=== PATIENT | female | born 1955 | race Caucasian/White ===

== ENCOUNTER → 2020-02-01 10:23 | Outpatient (CLI) | payer OTHER, SELFPAY ==
--- NOTE | ~2020-02-01 | MM_ITS ---
EXAMINATION: MM screening kwasi BI w manuel HISTORY: Screening TECHNIQUE: Craniocaudal and mediolateral oblique 3-D tomosynthesis images were obtained and synthetic 2-D images were generated. CAD analysis was submitted and interpreted. COMPARISON: Comparison to multiple prior studies sequentially, with oldest reviewed study dated 05/23. BREAST PARENCHYMAL COMPOSITION: There are scattered areas of fibroglandular density. FINDINGS: There is no evidence of suspicious mass, calcification, or architectural distortion to sugg est malignancy in either breast. There has been no suspicious interval change. IMPRESSION: 1. No mammographic evidence of malignancy. 2. Recommend routine screening mammography in one year. BI-RADS Category 1: Negative Reviewed, dictated and finalized at location A.
--- NOTE | ~2020-02-01 | DEXA_ITS ---
Bone Density Report Name: Lanny Hurtado Age: 64 Sex: Female Ethnicity: White Date of : 1955 Indication: postmenopausal; screening for osteoporosis; height loss; Referring Provider: ALBERT GAMBOA Study: Bone densitometry was performed. Exam Date: February 01, 2020 Accession number: [id number] Bone Density: Region BMD T-score Z-score Classification AP Spine (L1-L4) 1.219 1.6 3.3 Normal Femoral Neck (Left) 0.757 -0.8 0.7 Normal Total Hip (Left) 0.889 -0.4 0.8 Normal Femoral Neck (Right) 0.758 -0.8 0.7 Normal Total Hip (Right) 0.850 -0.8 0.5 Normal Total Hip Mean 0.870 -0.6 0.7 Normal World Health Organization criteria for BMD impression classify patients as: Normal (T-score at or above -1.0), Osteopenia (T-score between -1.0 and -2.5), or Osteoporosis (T-score at or below -2.5). 10-year Fracture Risk: FRAX not reported because: All T-scores for Spine Total, Hip Total, Femoral Neck at or above -1.0 Previous Exams: Region Exam Age BMD T-score BMD Change BMD Change Date g/cm2 vs Baseline vs Previous AP Spine(L1-L4) 02/01/2020 64 1.219 1.6 -0.116 -0.020 09/16/2017 62 1.239 1.7 -0.096 0.006 01/01/2013 57 1.233 1.7 -0.102* -0.102* 06/12/2005 50 1.335 2.6 Total Hip(Left) 02/01/2020 64 0.889 -0.4 -0.142 -0.011 09/16/2017 62 0.900 -0.3 -0.130 -0.065 01/01/2013 57 0.966 0.2 -0.065* -0.065* 06/12/2005 50 1.031 0.7 Total Hip(Right) 02/01/2020 64 0.850 -0.8 -0.172 -0.026 09/16/2017 62 0.876 -0.5 -0.145 -0.016 01/01/2013 57 0.892 -0.4 -0.130* -0.130* 06/12/2005 50 1.022 0.7 *Denotes significance at 95% confidence level, LSC for AP Spine = 0.022 g/cm2, LSC for Total Hip = 0.027 g/cm2 Clinical Information Provided by Patient: Has used the following medications: Vitamin D Patient maximum height was 65 Menopause Age: 53 Drinks caffeinated beverages Onset of menses at age 13 Number of children 0 Impression: The patient has normal bone mass. No significant bone loss was observed. Discussion: BONE DENSITY IS ABOVE THE MINIMUM DESIRABLE LEVEL AT ALL SKELETAL SITES TESTED. This patient?s bone mineral density is above the minimum desirable level (T-score -1.0 or better) at all sites measured. The patient should follow a health
== END ==
PROVIDERS: Visit Provider Obstetrics & Gynecology Gynecology
DX: Z12.31 Encounter for screening mammogram for malignant neoplasm of breast (principal); Z78.0 Asymptomatic menopausal state
CPT/HCPCS: 77063; 77067; 77080

== ENCOUNTER → 2021-04-06 10:08 | Outpatient (CLI) | payer OTHER, SELFPAY ==
--- NOTE | ~2021-04-06 | MM_ITS ---
EXAMINATION: MM screening kwasi BI w manuel HISTORY: Screening TECHNIQUE: Craniocaudal and mediolateral oblique 3-D tomosynthesis images were obtained and synthetic 2-D images were generated. CAD analysis was submitted and interpreted. COMPARISON: Comparison to multiple prior studies sequentially, with oldest reviewed study dated 05/23. BREAST PARENCHYMAL COMPOSITION: There are scattered areas of fibroglandular density. FINDINGS: There is no evidence of suspicious mass, calcification, or architectural distortion to sugg est malignancy in either breast. There has been no suspicious interval change. IMPRESSION: 1. No mammographic evidence of malignancy. 2. Recommend routine screening mammography in one year. BI-RADS Category 1: Negative Reviewed, dictated and finalized at location A. ARYNGOLOGY PHYSICIAN
== END ==
PROVIDERS: Visit Provider Obstetrics & Gynecology Gynecology
DX: Z12.31 Encounter for screening mammogram for malignant neoplasm of breast (principal)
CPT/HCPCS: 77063; 77067

== ENCOUNTER → 2022-03-15 12:32 | Outpatient (CLI) | payer OTHER, SELFPAY ==
--- NOTE | ~2022-03-15 | XR_ITS ---
XR hip LT min 2V DATE: 03/15/2022 12:53 INDICATION: Left hip pain for several months; no injury TECHNIQUE: AP and lateral views COMPARISON: None FINDINGS: No fracture or dislocation, avascular necrosis or bone destruction. There is mild left hip osteoarthritis. The pubic symphysis and sacroiliac joints appear normally aligned. IMPRESSION: Mild left hip osteoarthritis Reviewed, dictated and finalized at location B. SING MACHINE OPERATOR
--- NOTE | ~2022-03-15 | XR_ITS ---
XR lumbar spine 2-3V DATE: 03/15/2022 12:54 INDICATION: Low back pain for months. No injury. TECHNIQUE: AP, lateral, coned lateral lumbosacral views COMPARISON: None FINDINGS: There is mild to moderate degenerative disc disease at L1-2, L2-3, L3-4 and L4-5 and modera te severe degenerative disease at L5-S1. There is degenerative change at the apophyseal joints, with associated grade 1 anterolisthesis at L3- 4 and L4-5. The lumbar pedicles are intact. No fracture or bone destruction is detected. The sacroiliac joints are normal. Abdominal aortic calcification is noted, without apparent aneurysm. IMPRESSION: Multilevel degenerative disc disease, most prominent at L5-S1 Degenerative changes apophyseal joints with associated grade 1 anterolisthesis at L3-4 and L4-5 Reviewed, dictated and finalized at location B. RDING ARTIST
--- NOTE | ~2022-03-15 | XR_ITS ---
XR hip RT min 2V DATE: 03/15/2022 12:54 INDICATION: Right hip pain for several months. No injury. TECHNIQUE: AP and lateral views of right hip COMPARISON: None FINDINGS: The pubic symphysis and sacroiliac joints are intact. Moderately severe to severe degenerative disc disease noted at L5-S1. No fracture or dislocation, avascular necrosis or bone destruction of the right hip. Right hip joint space is well preserved. IMPRESSION: Moderately severe to severe degenerative disc disease at L5-S1 No significant abnormality of the right hip Reviewed, dictated and finalized at location B. W MACHINE OPERATOR SINGLE SPINDLE
== END ==
PROVIDERS: PCP Internal Medicine; Visit Provider Internal Medicine
DX: M54.50 Low back pain, unspecified (principal); M51.37 Other intervertebral disc degeneration, lumbosacral region; M43.16 Spondylolisthesis, lumbar region; M16.12 Unilateral primary osteoarthritis, left hip
CPT/HCPCS: 72100; 73502

== ENCOUNTER → 2022-06-26 12:44 | Outpatient (CLI) | payer OTHER, SELFPAY ==
--- NOTE | ~2022-06-26 | MM_ITS ---
EXAMINATION: MM screening kwasi BI w manuel HISTORY: Screening mammogram TECHNIQUE: Craniocaudal and mediolateral oblique 3-D tomosynthesis images were obtained and synthetic 2-D images were generated. CAD analysis was submitted and interpreted. COMPARISON: 04/06/2021, 02/01/2020, 11/02/2018 bilateral screening mammogram examinations BREAST PARENCHYMAL COMPOSITION: There are scattered areas of fibroglandular density. FINDINGS: There is no evidence of suspicious mass, calcification, or architectural distortion to sugg est malignancy in either breast. There has been no suspicious interval change. IMPRESSION: 1. No mammographic evidence of malignancy. 2. Recommend routine screening mammography in one year. BI-RADS Category 1: Negative Reviewed, dictated and finalized at location A. TING GOODS SALES ASSOCIATE
== END ==
PROVIDERS: PCP Obstetrics & Gynecology Gynecology; Visit Provider Obstetrics & Gynecology Gynecology
DX: Z12.31 Encounter for screening mammogram for malignant neoplasm of breast (principal)
CPT/HCPCS: 77063; 77067

== ENCOUNTER → 2023-02-12 10:14 | Outpatient (CLI) | payer OTHER, SELFPAY | PROVIDERS: PCP Nurse Practitioner Family; Visit Provider Nurse Practitioner Family | DX: S89.91XA Unspecified injury of right lower leg, initial encounter (principal) | CPT/HCPCS: 73562 ==

== ENCOUNTER → 2023-04-08 08:44 | Outpatient (CLI) | payer OTHER, MEDICARE, SELFPAY ==
--- NOTE | ~2023-04-08 | MR_ITS ---
MRI of the right knee Clinical history: Pain Technique: Coronal proton density and proton density-weighted images, sagittal proton-density and T2 fat-sat images, and axial proton-density fat-saturated images were acquired. Findings: Anterior and posterior cruciate ligaments are intact. Medial collateral ligament and the la teral collateral ligament complex are intact. Popliteus tendon is intact. There is complex tearing of the posterior horn of the medial meniscus, predominantly horizontal. Ther e is a suspected 1.8 x 0.8 x 0.5 cm parameniscal cyst extending inferiorly from the posterior horn of the medial meniscus. No lateral meniscal tear identified. There is mild chondral thinning along the medial femoral condyle. Lateral compartment articular carti sorin is well preserved. There is mild chondromalacia patella. Extensor mechanism is intact. Small joint effusion present. Moderate Ortiz's cyst present. Impression: Complex tearing of the posterior horn of the medial meniscus, with associated probable 1.8 x 0.8 x 0. 5 cm parameniscal cyst. Please see details above. Mild degenerative change. Moderate Ortiz's cyst. Reviewed, dictated and finalized at location . LED LABOR Impression: Complex tearing of the posterior horn of the medial meniscus, with associated p robable 1.8 x 0.8 x 0.5 cm parameniscal cyst. Please see details above. Mild degenerative change. Moderate Ortiz's cyst.
== END ==
PROVIDERS: PCP Orthopaedic Surgery; Visit Provider Orthopaedic Surgery
DX: S83.231A Complex tear of medial meniscus, current injury, right knee, initial encounter (principal); M17.11 Unilateral primary osteoarthritis, right knee; M71.21 Synovial cyst of popliteal space [Baker], right knee; X58.XXXA Exposure to other specified factors, initial encounter
CPT/HCPCS: 73721

== ENCOUNTER → 2023-06-11 08:29 | Outpatient (CLI) | payer OTHER, SELFPAY ==
--- NOTE | ~2023-06-11 | US_ITS ---
Renal-Bladder ultrasound Clinical History: Left flank pain Technique: Real-time sonographic imaging of the kidneys and urinary bladder was performed. Findings: The right kidney measures 9.6 cm in length and the left kidney measures 10.7 cm. There is n o hydronephrosis or renal calculus identified. Renal cortical echogenicity is within normal limits. N o renal mass lesion is identified. The urinary bladder is moderately distended at the time of this exam. No intraluminal echoes are iden tified. No abnormal wall thickening is seen. Impression: Unremarkable ultrasound of the kidneys and urinary bladder. Reviewed, dictated and finalized at location M. RVISOR INSECTICIDE Impression: Unremarkable ultrasound of the kidneys and urinary bladder.
== END ==
PROVIDERS: PCP Nurse Practitioner Family; Visit Provider Nurse Practitioner Family
DX: R10.9 Unspecified abdominal pain (principal)
CPT/HCPCS: 76775

== ENCOUNTER 2023-07-10 10:21 | Outpatient (CLI) | payer OTHER, SELFPAY ==
--- NOTE | ~2023-07-10 | DEXA_ITS ---
Bone Density Report Name: CONCHITA IRENE Age: 68 Sex: Female Ethnicity: White Date of : 1955 Indication: postmenopausal; screening for osteoporosis; height loss; Referring Provider: ALBERT GAMBOA Study: Bone densitometry was performed. Exam Date: July 10, 2023 Accession number: [id number] Bone Density: Region BMD T-score Z-score Classification AP Spine (L1-L4) 1.146 0.9 2.9 Normal Femoral Neck (Left) 0.699 -1.4 0.3 Osteopenia Total Hip (Left) 0.876 -0.5 0.9 Normal Femoral Neck (Right) 0.736 -1.0 0.7 Normal Total Hip (Right) 0.830 -0.9 0.5 Normal Total Hip Mean 0.853 -0.7 0.7 Normal World Health Organization criteria for BMD impression classify patients as: Normal (T-score at or above -1.0), Osteopenia (T-score between -1.0 and -2.5), or Osteoporosis (T-score at or below -2.5). 10-year Fracture Risk(1): Major Osteoporotic Fracture 8.8% Hip Fracture 0.9% Reported Risk Factors: [place] (), Neck BMD=0.699, BMI=32.3 (1) FRAX(R) Version 3.08. Fracture probability calculated for an untreated patient. Fracture probability may be lower if the patient has received treatment. Previous Exams: Region Exam Age BMD T-score BMD Change BMD Change Date g/cm2 vs Baseline vs Previous AP Spine(L1-L4) 07/10/2023 68 1.146 0.9 -0.189 -0.073* 02/01/2020 64 1.219 1.6 -0.116 -0.020 09/16/2017 62 1.239 1.7 -0.096 0.006 01/01/2013 57 1.233 1.7 -0.102* -0.102* 06/12/2005 50 1.335 2.6 Total Hip(Left) 07/10/2023 68 0.876 -0.5 -0.155 -0.013 02/01/2020 64 0.889 -0.4 -0.142 -0.011 09/16/2017 62 0.900 -0.3 -0.130 -0.065 01/01/2013 57 0.966 0.2 -0.065* -0.065* 06/12/2005 50 1.031 0.7 Total Hip(Right) 07/10/2023 68 0.830 -0.9 -0.192 -0.020 02/01/2020 64 0.850 -0.8 -0.172 -0.026 09/16/2017 62 0.876 -0.5 -0.145 -0.016 01/01/2013 57 0.892 -0.4 -0.130* -0.130* 06/12/2005 50 1.022 0.7 *Denotes significance at 95% confidence level, LSC for AP Spine = 0.022 g/cm2, LSC for Total Hip = 0.027 g/cm2 Clinical Information Provided by Patient: Has used the following medications: Vitamin D Patient maximum height was 65.0 Menopause Age: 53 No regular weight bearing exercise Drinks caffeinated beverages Onset of menses at ag
--- NOTE | ~2023-07-10 | MM_ITS ---
EXAMINATION: MM screening kwasi BI w manuel HISTORY: Screening mammogram TECHNIQUE: Craniocaudal and mediolateral oblique 3-D tomosynthesis images were obtained and synthetic 2-D images were generated. CAD analysis was submitted and interpreted. COMPARISON: 07/10/2023, 06/26/2022, 04/06/2021 bilateral screening mammogram examinations BREAST PARENCHYMAL COMPOSITION: There are scattered areas of fibroglandular density. FINDINGS: There is no evidence of suspicious mass, calcification, or architectural distortion to sugg est malignancy in either breast. There has been no suspicious interval change. IMPRESSION: 1. No mammographic evidence of malignancy. 2. Recommend routine screening mammography in one year. BI-RADS Category 1: Negative Reviewed, dictated and finalized at location A.
== END 2023-07-10 10:22 ==
LOC: MICIMG 10:22
PROVIDERS: PCP Nurse Practitioner Family; Visit Provider Obstetrics & Gynecology Gynecology
DX: Z12.31 Encounter for screening mammogram for malignant neoplasm of breast (principal); Z78.0 Asymptomatic menopausal state; M85.88 Other specified disorders of bone density and structure, other site
CPT/HCPCS: 77063; 77067; 77080

== ENCOUNTER 2024-07-13 11:38 | Outpatient (CLI) | payer OTHER, SELFPAY ==
--- NOTE | ~2024-07-13 | MM_ITS ---
EXAMINATION: MM screening kwasi BI w manuel HISTORY: Screening TECHNIQUE: Craniocaudal and mediolateral oblique 3-D tomosynthesis images were obtained and synthetic 2-D images were generated. CAD analysis was submitted and interpreted. COMPARISON: Comparison to multiple prior studies sequentially, with oldest reviewed study dated 09/16. BREAST PARENCHYMAL COMPOSITION: Not dense: There are scattered areas of fibroglandular density. FINDINGS: There is no evidence of suspicious mass, calcification, or architectural distortion to sugg est malignancy in either breast. There has been no suspicious interval change. IMPRESSION: 1. No mammographic evidence of malignancy. 2. Recommend routine screening mammography in one year. BI-RADS Category 1: Negative Reviewed, dictated and finalized at location B.
== END 2024-07-13 11:39 | disposition home or self-care (01) ==
LOC: MICIMG 11:39
PROVIDERS: PCP Obstetrics & Gynecology Gynecology; Visit Provider Obstetrics & Gynecology Gynecology
DX: Z12.31 Encounter for screening mammogram for malignant neoplasm of breast (principal)
CPT/HCPCS: 77063; 77067